=== PATIENT | female | born 1995 | race Caucasian/White ===

== ENCOUNTER 2019-12-08 01:50 | Emergency (ER) | payer MEDICAID ==
[~2019-12-08] VITALS: Ht 162.6 cm; Wt 62.0 kg
[2019-12-08 02:19] VITALS: BP 122/76
[2019-12-08] MEDS ORDERED: CEPHALEXIN 250 MG CAPSULE. PO ONE (02:30)
[2019-12-08] MEDS ORDERED: NEOMY/BACITR/POLYMYXIN OINT PACKET. TP ONE (02:30)
[2019-12-08] MEDS ORDERED: LIDOCAINE 2%/EPI 1:100,000 20 ML VIAL. IJ ONE ×2 (03:00→03:30)
[2019-12-08] MEDS ORDERED: DIPH,PERTUSS(ACELL),TET VAC/PF 0.5 ML SYRINGE. VAX IM ONE (04:00)
[2019-12-08] MEDS ORDERED: CONTRAST GIVEN. MC PRN (04:30)
[2019-12-08] MEDS ORDERED: AZITHROMYCIN 250 MG TABLET. PO ONE (04:45)
[2019-12-08] MEDS ORDERED: cefTRIAXone IM 250 MG VIAL IM ONE (04:45)
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
[2019-12-08] MEDS ORDERED: CEPH-264 PO (07:17)
[2019-12-08 08:07] LABS: BARBITURATES NEG (NEG); BENZODIAZEPINES POS (NEG); CANNABINOIDS POS (NEG); COCAINE NEG (NEG); METHADONE NEG (NEG); OPIATES NEG (NEG); PHENCYCLIDINE NEG (NEG)
[2019-12-08 08:10] LABS: AMPHETAMINE/METHAMPHETAMINE NEG (NEG)
[2019-12-09 19:09] LABS: GC PROBE Negative (Negative)
== END 2019-12-08 08:00 | disposition left against medical advice (07) ==
LOC: ER 01:50
DX: S51.812A Laceration without foreign body of left forearm, initial encounter (principal); S01.81XA Laceration without foreign body of other part of head, initial encounter; Y28.8XXA Contact with other sharp object, undetermined intent, initial encounter; Y93.89 Activity, other specified; Y92.89 Other specified places as the place of occurrence of the external cause; Y99.8 Other external cause status
CPT/HCPCS: 12005; 12013; 80307; 81025; 87491; 87591; 90471; 90715; 99285; J3490; Q0111